=== PATIENT | female | born 1990 | race Caucasian/White ===

== ENCOUNTER 2016-09-26 17:46 | Emergency (ER) | payer OTHER ==
[~2016-09-26] VITALS: Ht 157.5 cm; Wt 72.1 kg
[2016-09-26 18:20] LABS: BASOPHIL % 0.4 % (0-2); PLATELET COUNT 255 x10^3mcL (130-400); RED CELL DISTRIBUTION WIDTH 14.3 % (11.5-14.5)
[2016-09-26 18:30] LABS: CALCIUM 9.1 mg/dL (8.5-10.1); CARBON DIOXIDE 31.9 mmol/L (21-32); CHLORIDE SERUM 104 mmol/L (98-107); CREATININE SERUM 0.6 mg/dL (0.6-1.0); GFR1 > 60 mL/min; GLUCOSE SERUM 90 mg/dL (74-106); POTASSIUM SERUM 4.4 mmol/L (3.5-5.1); SODIUM SERUM 141 mmol/L (136-145)
[2016-09-26 18:42] LABS: ALBUMIN 4.1 g/dL (3.4-5.0); ALKALINE PHOSPHATASE 79 U/L (46-116); ALT/SGPT 18 U/L (14-59); AST/SGOT 11 U/L (15-37); BILIRUBIN TOTAL 0.25 mg/dL (0.20-1.00); LIPASE 99 IU/L (73-393); T4(THYROXINE) 8.8 ug/dL (4.7-13.3); TOTAL PROTEIN, SERUM 7.8 g/dL (6.4-8.2)
[2016-09-26 19:18] VITALS: BP 118/77
== END 2016-09-26 19:18 | disposition home or self-care (01) ==
LOC: ED 17:46
PROVIDERS: Emergency Medicine
DX: R06.02 Shortness of breath (principal)

== ENCOUNTER 2017-06-27 15:52 | Emergency (ER) | payer OTHER ==
[~2017-06-27] VITALS: Ht 157.5 cm; Wt 68.0 kg
[2017-06-27 15:58] VITALS: Ht 157.5 cm; Wt 68.0 kg
[2017-06-27 18:23] VITALS: BP 124/75
== END 2017-06-27 18:23 | disposition home or self-care (01) ==
LOC: ED 15:52
DX: N39.0 Urinary tract infection, site not specified (principal); K59.00 Constipation, unspecified

== ENCOUNTER 2018-06-07 22:37 | Emergency (ER) | payer OTHER ==
[~2018-06-07] VITALS: Ht 157.5 cm; Wt 75.3 kg
[2018-06-07 22:48] VITALS: Ht 157.5 cm; Wt 75.3 kg
[2018-06-08 01:39] VITALS: BP 142/84
== END 2018-06-08 01:39 | disposition home or self-care (01) ==
LOC: ED 22:37
DX: J02.9 Acute pharyngitis, unspecified (principal)